=== PATIENT | male | born 1975 | race Caucasian/White ===

== ENCOUNTER → 2020-05-10 07:36 | Outpatient (CLI) | payer OTHER, SELFPAY ==
[2020-05-10] MEDS: COVID-19 VACC #1, MRNA(MOD) 100 MCG/0.5 ML VIAL IM (07:45)
== END ==
PROVIDERS: Visit Provider Internal Medicine
DX: Z23 Encounter for immunization (principal)
CPT/HCPCS: 0011A; 91301

== ENCOUNTER → 2020-06-01 06:41 | Outpatient (CLI) | payer OTHER, SELFPAY ==
--- NOTE | 2020-06-01 06:45 | DI.MRI.S_ITS ---
PROCEDURE: MR HEAD/BRAIN WO CON INDICATIONS: Headache associated with sexual activity TECHNIQUE: Noncontrast axial T1 spin echo, axial T2 fast spin echo, sagittal and axial FLAIR, coronal T2 fast spin echo, axial gradient echo, axial diffusion and ADC through the brain. COMPARISON: None. FINDINGS: Image quality: Excellent. CSF Spaces: Basal cisterns are patent. No extra-axial fluid collections. Ventricles are normal in size and shape. Brain: No intracranial masses or hemorrhage. Hoffmann/white matter interface is normal. Brainstem appears normal. Diffusion-weighted images demonstrate no acute ischemic insult. No chronic ischemic insults. Normal intravascular flow voids are present. Skull and face: Calvarium has normal marrow signal. Orbits appear normal. Sinuses: Moderate mucosal thickening noted in the left maxillary sinus. Mild mucosal thickening noted in the sphenoid sinuses and the posterior right ethmoid air cells. 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 mastoids are clear. IMPRESSION: 1. No intracranial disease process. 2. No abnormal intracranial mass or mass effect. 3. No intracranial hemorrhage. 4. Left maxillary sinus, bilateral sphenoid sinus and right ethmoid air cell sinusitis. Dictated by: Reyna Richmond MD, PhD on 06/01/2020 at 10:49 Approved by: Reyna Richmond MD, PhD on 06/01/2020 at 10:53
== END ==
PROVIDERS: Referring Provider Physician Assistant Medical; Visit Provider Physician Assistant Medical
DX: G44.82 Headache associated with sexual activity (principal); J32.8 Other chronic sinusitis
CPT/HCPCS: 70551

== ENCOUNTER → 2020-06-07 07:41 | Outpatient (CLI) | payer OTHER, SELFPAY ==
[2020-06-07] MEDS: COVID-19 VACC #2, MRNA(MOD) 100 MCG/0.5 ML VIAL IM (07:48)
== END ==
PROVIDERS: Visit Provider Internal Medicine
DX: Z23 Encounter for immunization (principal)
CPT/HCPCS: 0012A; 91301

== ENCOUNTER → 2020-12-12 17:26 | Outpatient (CLI) | payer OTHER, SELFPAY ==
[2020-12-12 18:18] LABS: COVID19 -Nasal RAPID Negative (Negative)
== END ==
PROVIDERS: Referring Provider Nurse Practitioner Family; Visit Provider Nurse Practitioner Family
DX: Z20.822 Contact with and (suspected) exposure to COVID-19 (principal); R52 Pain, unspecified; R53.83 Other fatigue
CPT/HCPCS: 87635

== ENCOUNTER → 2023-03-14 18:49 | Outpatient (CLI) | payer OTHER, SELFPAY ==
--- NOTE | 2023-03-14 18:52 | DI.RAD.S_ITS ---
PROCEDURE: XR CHEST 2V INDICATIONS: Cough times 5 days, rales in bottom right lung on exam TECHNIQUE: 2 views of the chest were acquired. COMPARISON: [facility], , CHEST 2 VIEW, 01/03/2009, 20:45. FINDINGS: Surgical changes and devices: None. Lungs and pleura: No dense consolidation or pleural effusion. Mediastinum: Normal heart size Bones and chest wall: Unremarkable IMPRESSION: No acute radiographic abnormality. Dictated by: Juan Luis Rivas M.D. on 03/14/2023 at 21:26 Approved by: Juan Luis Rivas M.D. on 03/14/2023 at 21:28
== END ==
LOC: RAD 18:51
PROVIDERS: Referring Provider Physician Assistant; Visit Provider Physician Assistant
DX: R05.9 Cough, unspecified (principal)
CPT/HCPCS: 71046